=== PATIENT | male | born 1985 | race Caucasian/White ===

== ENCOUNTER 2021-02-14 15:48 | Inpatient (IN) | payer BC, SELFPAY ==
[2021-02-14] VITALS (16 sets, daily range): BP systolic 159–231; BP diastolic 87–144; PULSE 86–106; RESP 16–23; TEMP 36.6–36.8; O2SAT 95–100; BMI 32.0
--- NOTE | ~2021-02-14 | XR_ITS ---
EXAMINATION: XR chest 2V EXAM DATE: 02/14/2021 16:25 INDICATION: Midsternal chest pain, hypertension. TECHNIQUE: Frontal and lateral projections of the chest obtained and reviewed. Comparison is made to prior examination from 02/10/2018. FINDINGS: The lungs are clear. There are no pleural effusions. The cardiomediastinal silhouette is within normal limits. There is no pneumothorax suspected. The bones and soft tissues are unremarkab le. There is no significant interval change. IMPRESSION: No acute cardiopulmonary findings. Reviewed, dictated and finalized at location B.
--- NOTE | ~2021-02-14 | XR_ITS ---
EXAMINATION: XR chest 1V portable 02/15/2021 22:25 INDICATION: Shortness of breath, cough and fever PROCEDURE: AP portable chest COMPARISON: 02/14/2021 FINDINGS: The lungs are clear. The cardiomediastinal silhouette is within normal limits. There are no pleural effusions. There is no pneumothorax suspected. IMPRESSION: 1: NO ACUTE CARDIOPULMONARY DISEASE. Reviewed, dictated and finalized at location A.
--- NOTE | 2021-02-14 16:13 | ECG_ITS ---
Measurements Intervals [place] Rate: 103 P: -7 DC: 126 QRS: -15 QRSD: 106 T: 34 QT: 334 QTc: 437 Interpretive Statements SINUS TACHYCARDIA EARLY PRECORDIAL R/S TRANSITION LEFT VENTRICULAR HYPERTROPHY AND ST-T CHANGE BASELINE ARTIFACT- I, II, III, AVR, AVF, V2-V6 BORDERLINE ECG Electronically Signed On 02-15-2021 8:14:42 CDT by Americo Sandoval D.O.
[2021-02-14] MEDS: LABETALOL HCL INJ 100 MG/20 ML VIAL 20 MG IV PUSH (16:52)
[2021-02-14 16:54] LABS: Basophils Percent Auto 0.2 % (0.2-1.2); Eosinophils Absolute Auto 0.1 K/mm3 (0-0.3); Eosinophils Percent Auto 0.6 % (0-4.4); Hematocrit 47.6 % (42.0-52.0); Hemoglobin 16.6 g/dL (14.0-18.0); Immature Granulocyte Absolute 0.07 K/mm3 (0.00-0.031); Immature Granulocyte Percent A 0.5 % (0-0.5); Lymphocytes Percent Auto 24.5 % (18.3-44.2); Mean Corpuscular HGB Conc 34.9 g/dl (32-36); Mean Corpuscular Hemoglobin 27.8 pg (26-34); Mean Corpuscular Volume 79.7 fl (80-100); Mean Platelet Volume 10.9 fl (7.4-10.4); Monocytes Absolute Auto 0.8 K/mm3 (0.1-0.6); Monocytes Percent Auto 6.1 % (2.6-8.5); Neutrophils Absolute Auto 8.9 K/mm3 (1.3-6.7); Neutrophils Percent Auto 68.1 % (45.5-73.1); Platelet Count Result 238 k/mm3 (150-375); Red Blood Count 5.97 M/mm3 (4.6-6.20); Red Cell Distribution Width 12.8 % (11.5-14.5); White Blood Count 13.1 K/mm3 (4.5-10.0)
--- NOTE | 2021-02-14 16:56 | PC.NURSE ---
Per HERVE Archer via verbal order read-back, give 20mg Labetalol IVP Q10min until blood pressure is 160 systolic.
[2021-02-14 17:04] LABS: Prothrombin Time 13.2 Seconds (11.1-14.7)
[2021-02-14 17:05] LABS: Partial Thromboplastin Time 26.9 SECONDS (22.3-36.8)
--- NOTE | 2021-02-14 17:11 | PC.NURSE ---
Patient given second dose of 20mg Labetalol IVP.
[2021-02-14 17:13] LABS: Anion Gap 11 mmol/L (8-16); Blood Urea Nitrogen 19 mg/dL (9-20); Calcium 9.6 mg/dL (8.4-10.2); Carbon Dioxide 26 mmol/L (22-30); Chloride 94 mmol/L (98-107); Estimated CRCL calculation 105 ml/min; Estimated Glomerular Filt Rate > 60; Glucose 571 mg/dL (75-110); Potassium 3.6 mmol/L (3.4-5.0); Sodium 131 mmol/L (137-145)
[2021-02-14] MEDS: SODIUM CHLORIDE 0.9% IV 1,000 ML 999 ML IV CONT (17:27)
--- NOTE | 2021-02-14 17:33 | ED.CHESTPAIN ---
HPI - Chest Pain General Chief Complaint: Chest Pain Stated Complaint: chest pain Time Seen by Provider: 02/14/21 16:40 Source: patient Mode of arrival: ambulatory Limitations: no limitations History of Present Illness HPI narrative: Patient is 36 years old white male presents with intermittent chest pain started yesterday, left chest radiating to left shoulder, worse on exertion, may be better at rest, also difficulty breathing, tightness, 6 out of 10. History of hypertension used to be on hydrochlorothiazide and losartan, patient does not take his medication for months. Probably 6 months. Patient does not smoke or drink or use drugs, strong family history of coronary artery disease and diabetes. Patient denies any fever, chills, nausea, vomiting, headache, abdominal pain. Patient is fully vaccinated for COVID-19. Related Data Allergies Allergy/AdvReac Type Severity Reaction Status Date / Time No Known Allergies Allergy Unverified 02/10/18 15:34 Review of Systems Review of Systems: Narrative: CONSTITUTIONAL: Denies fever, chills, or sweats. EYES: Denies visual changes, redness, or discharge. ENT: Denies rhinorrhea, congestion, sore throat, or otalgia. CARDIOVASCULAR: Denies chest pain, palpitations, or edema. RESPIRATORY: Denies cough or dyspnea. GASTROINTESTINAL: Denies abdominal pain, nausea, vomiting, or diarrhea. GENITOURINARY: Denies dysuria or hematuria. SKIN: Denies rash or itching. MUSCULOSKELETAL: Denies back pain, joint pain, or myalgia. NEUROLOGIC: Denies headache, numbness, or weakness. PSYCHIATRIC: Denies anxiety or depression. Exam Narrative: Exam Narrative: General appearance: Well-developed, well-nourished Skin: Normal color Head: Normocephalic, nontraumatic Eyes: Clear conjunctiva ENT: Oropharynx normal, ears normal, nose normal Neck: Supple, nontender Chest and respiratory: Airway patent, no respiratory distress, no accessory muscle use Heart: Regular rate/rhythm Abdomen: Soft, nontender, no organomegaly, quiet bowel sounds Vascular: Normal peripheral pulses, normal capillary refill. Musculoskeletal: Normal range of motion, nontender back Neurologic: Alert and oriented ?3, AUTO DAMAGE ADJUSTER is normal as tested, no gross motor deficit Course Course Emergency Course: Improving Consultations Consultation #1: Dr. Jolley Date: 02/14/21 Time: 17:47 Consultation #2: Dr. Lopez Date: 02/14/21 Time: 17:48 Vital Signs Vital signs: Vital Signs Temperature 36.6 C 02/14/21 16:14 Pulse Rate 101 H 02/14/21 16:14 Respiratory Rate 16 02/14/21 16:14 Blood Pressure 217/134 H 02/14/21 16:14 Pulse Oximetry 100 02/14/21 16:14 Temperature 36.6 C 02/14/21 16:14 Pulse Rate 97 02/14/21 16:45 Respiratory Rate 16 02/14/21 16:27 Blood Pressure 231/144 H 02/14/21 16:27 Pulse Oximetry 99 02/14/21 16:27 MDM - Chest Pain MDM Narrative Medical decision making narrative: Uncontrolled hypertension, noncompliance with medication. Labs, EKG, UA ordered. Further plan to follow Differential Diagnosis Differential diagnosis: Likely stable angina, atypical chest pain, chest pain and other (Uncontrolled hypertension) Lab Data Result diagrams: 02/14/21 16:41 02/14/21 16:41 Labs: Lab Results 02/14/21 02/14/21 02/14/21 Range/Units 16:41 16:41 16:41 WBC 13.1 H (4.5-10.0) K/mm3 RBC 5.97 (4.6-6.20) M/mm3 Hgb 16.6 (14.0-18.0) g/dL Hct 47.6 (42.0-52.0) % MCV 79.7 L (80-100) fl MCH 27.8 (26-34) pg MCHC 34.9 (32-36) g/dl RDW 12.8 (11.5-14.5) % Plt Count 238 (150-375) k/mm3 MPV 10.9 H (7.4-10.4) fl Immature Gran % (Auto) 0.5 (0-0.5) % Neut % (
[2021-02-14 17:42] LABS: Alveolar/Arterial O2 Gradient 33.6 mmHg; Base Excess ABG 1.3 mEq/l (+/-2.0); Fractional Inspired Oxygen 21 %; HCO3 ABG 24.8 mEq/l (22.0-26.0); Oxygen Content ABG 22.1 %vol (16.0-22.0); Oxygen Saturation ABG 95.4 % (95.0-100.0); Oxyhemoglobin 94.3 % THb (90.0-100.0); PCO2 ABG 36.1 mmHg (35.0-45.0); PO2 ABG 72.9 mmHg (80.0-100.0); PO2 FiO2 Ratio Arterial Blood 3.47 %; Total Hemoglobin 16.7 g/dL (12.0-18.0); pH ABG 7.455 (7.350-7.450)
[2021-02-14 17:43] LABS: Device ROOM AIR; Modified Allen's Test Pass; Site Drawn LEFT RADIAL
[2021-02-14] MEDS: METOPROLOL TARTRATE INJ 5 MG/5 ML VIAL IV PUSH ×3 (17:52→18:20)
[2021-02-14] MEDS: INSULIN HUMAN REGULAR (*BKC) 100 UNITS/ML 11 UNITS IV PUSH (17:54)
[2021-02-14] MEDS: NITROGLYCERIN OINTMENT 1 INCH DOSE TRANSDERM ×2 (17:59→18:37)
--- NOTE | 2021-02-14 17:59 | PC.NURSE ---
Per HERVE Archer, give 5mg Metoprolol 3 times every 5 minutes.
[2021-02-14 18:11] LABS: Magnesium 1.7 mg/dL (1.6-2.3); Phosphorus 3.5 mg/dL (2.5-4.5)
[2021-02-14 18:14] LABS: Beta-Hydroxybutyrate/Acetoacetate 0.08 mmol/L (0.02-0.27)
[2021-02-14] MEDS: ASPIRIN 81 MG CHEWABLE TABLET 324 MG PO (18:23)
[2021-02-14 18:30] LABS: Glucose Point of Care 425 mg/dl (65-105)
[2021-02-14] MEDS: INSULIN HUMAN REGULAR (*BKC) 100 UNITS in SODIUM CHLORIDE 0.9% IV 99 ML 7.3 UNITS IV CONT (18:30)
[2021-02-14 18:32] LABS: Add Urine Microscopic? YES; Appearance Urine Clear (Clear); Bilirubin Urine Negative (Negative); Blood Urine Negative (Negative); Color Urine Straw (Yellow); Glucose Urine UA 3+ mg/dL (Negative); Ketones Urine Negative (Negative); Leukocyte Esterase Ur Negative LEU/UL (Negative); Mucus Urine Rare /lpf; Nitrate Urine Negative (Negative); Protein Urine 2+ mg/dL (Negative); Urobilinogen Urine Negative mg/dL (<2.0); WBC Urine 0-3 /hpf
--- NOTE | 2021-02-14 18:43 | ECG_ITS ---
Measurements Intervals [place] Rate: 94 P: 28 MA: 134 QRS: -11 QRSD: 105 T: 202 QT: 345 QTc: 431 Interpretive Statements SINUS RHYTHM EARLY PRECORDIAL R/S TRANSITION LEFT VENTRICULAR HYPERTROPHY AND ST-T CHANGE BORDERLINE T WAVE ABNORMALITY- DIFFUSE LEADS BASELINE ARTIFACT- I, II, AVR, AVL, AVF, V2-V6 BORDERLINE ECG Electronically Signed On 02-16-2021 9:46:56 CDT by Americo Sandoval D.O.
[2021-02-14 18:47] LABS: Specific Grav Ur 1.031 (1.001-1.035)
[2021-02-14 20:05] LABS: Glucose Point of Care 297 mg/dl (65-105)
[2021-02-14] MEDS: METOPROLOL TARTRATE 25 MG TABLET PO (20:38)
[2021-02-14 21:08] LABS: Glucose Point of Care 278 mg/dl (65-105)
--- NOTE | 2021-02-14 21:26 | PM.IMHP ---
H&P: HPI History of Present Illness Date/Time: 02/14/21 21:26Carmel is a 36 Year old male patient who has a past medical history of having hypertension. The patient states that he was having some chest pain about 3 years ago and he was diagnosed with hypertension. The patient took the medication up until a few months ago when he ran out during COVID. He could not afford to go to the doctor to get his medications renewed. So he has been without hypertensive medications for of few months. The patient stated he did have some hydrochlorothiazide and would occasionally take it when he felt like he needed to take it. The patient stated he recently received insurance and was going to follow-up with her primary care doctor to get back on his losartan and hydrochlorothiazide. He has had no prior history of diabetes. Today the patient came in because he was complaining some chest pain that started yesterday. It radiated down his left shoulder and his left chest. It was better with rest. He was also having difficulty breathing his pain was 6/10 any rated his pain as a tightness. The patient is fully vaccinated for COVID-19. Patient's trop was found to be 1.210. His blood sugar was found to be 571. The patient was placed on insulin drip and placed in the ICU. His blood sugar did come down to 271. The patient is complaining of feeling hungry. He has no anion gap and Is without complaints of nausea vomiting. The patient was given aspirin in the emergency room IV Lopressor nitro insulin IV push as well as IV drip. Cardiology had been notified of patient's complaint of chest pain and elevated troponin. The trim machine operator as well as a certified nursing assistant has been notified and the patient was admitted to observation in to ICU on the date of service of 02/14/2021. Chief Complaint: Chest pain Review of Systems Review of Systems: All systems reviewed & are unremarkable except as noted in HPI and below Constitutional: Constitutional: Reports as per HPI and Reports no additional constitutional complaints Eyes: Eyes: Reports as per HPI and Reports no additional eye complaints ENT: Reports system reviewed and no additional complaints, except as documented and Reports Normal hearing present Cardiovascular: Cardiovascular: Reports no additional cardiovascular complaints Respiratory: Respiratory: Reports no additional respiratory complaints and Reports no additional respiratory complaints Gastrointestinal: Gastrointestinal: Reports as per HPI and Reports no additional gastrointestinal complaints Musculoskeletal: Musculoskeletal: Reports no additional musculoskeletal complaints Integumentary/Breasts: Skin/Breast: Reports system reviewed and no additional complaints, except as docu and Reports as per HPI Neurologic: Reports system reviewed and no additional complaints, except as documented, Reports as per HPI and Reports Normal hearing present Psychiatric: Psychiatric: Reports no additional psychiatric complaints and Reports as per HPI Endocrine: Endocrine: Reports no additional endocrine complaints Hematologic/Lymphatic: Hematologic/Lymphatic: Reports no additional hematologic/lymphatic complaints Allergic/Immunologic: Allergic/Immunologic: Reports no additional allergic/immunologic complaints [facility] Past Medical History Medical History (Updated 02/14/21 @ 21:32 by Haven Meehan NP) DM2 (diabetes mellitus, type 2) Hypertension Torn ACL Surgical History Surgical History (Updated 02/14/21 @ 21:32 by Haven Meehan NP) No pertinent past surgical history Family History Family History Mother Diabetes mellitus Hypertension Cerebrovascular accident End stage renal disease on dialysis Father Hypertension Arrhythmia Social History Social History (Updated 02/14/21 @ 21:34 by Haven Meehan NP) Social History: the patient states that he works for a [employer] in [place].
[2021-02-14] MEDS: INSULIN GLARGINE (*BKC) 100 UNITS/ML 20 UNITS SUB-Q (21:39)
[2021-02-14 22:12] LABS: Glucose Point of Care 238 mg/dl (65-105)
[2021-02-14] MEDS: ENOXAPARIN 120 MG/0.8 ML SYRINGE 105 MG SUB-Q (22:13)
[2021-02-14] MEDS: ACETAMINOPHEN 325 MG TABLET 650 MG PO (22:28)
[2021-02-15] VITALS (30 sets, daily range): BP systolic 150–188; BP diastolic 77–117; PULSE 78–113; RESP 12–27; TEMP 36.7–37.8; O2SAT 88–99
[2021-02-15] MEDS: NITROGLYCERIN OINTMENT 1 INCH DOSE TRANSDERM ×3 (00:18→12:59)
[2021-02-15 02:08] LABS: Glucose Point of Care 279 mg/dl (65-105)
--- NOTE | 2021-02-15 02:08 | PC.NURSE ---
Called to room by patient for c/o nausea, denies chest pain. POC glucose 279. Patient states nausea has passed and does not want anything right now. Instructed to call if any problems/complaints.
[2021-02-15 04:50] LABS: Basophils Percent Auto 0.3 % (0.2-1.2); Eosinophils Absolute Auto 0.1 K/mm3 (0-0.3); Eosinophils Percent Auto 0.9 % (0-4.4); Hemoglobin 14.2 g/dL (14.0-18.0); Immature Granulocyte Absolute 0.05 K/mm3 (0.00-0.031); Immature Granulocyte Percent A 0.4 % (0-0.5); Lymphocytes Absolute Auto 3.16 K/mm3 (0.9-3.2); Lymphocytes Percent Auto 26.5 % (18.3-44.2); Mean Corpuscular HGB Conc 34.6 g/dl (32-36); Mean Corpuscular Hemoglobin 27.7 pg (26-34); Mean Corpuscular Volume 80.1 fl (80-100); Mean Platelet Volume 11.1 fl (7.4-10.4); Monocytes Absolute Auto 0.8 K/mm3 (0.1-0.6); Monocytes Percent Auto 6.9 % (2.6-8.5); Neutrophils Absolute Auto 7.7 K/mm3 (1.3-6.7); Platelet Count Result 197 k/mm3 (150-375); Red Blood Count 5.12 M/mm3 (4.6-6.20); Red Cell Distribution Width 12.5 % (11.5-14.5); White Blood Count 11.9 K/mm3 (4.5-10.0)
[2021-02-15 05:10] LABS: Hemoglobin A1C 13.1 % (<5.7)
[2021-02-15 05:47] LABS: Alanine Aminotransferase 48 U/L (4-50); Albumin Level 3.2 g/dL (3.5-5.1); Alkaline Phosphatase 85 U/L (38-126); Anion Gap 6 mmol/L (8-16); Aspartate Amino Transferase 55 U/L (17-59); Bilirubin,Total 0.6 mg/dL (0.2-1.3); Blood Urea Nitrogen 13 mg/dL (9-20); Calcium 8.4 mg/dL (8.4-10.2); Carbon Dioxide 27 mmol/L (22-30); Chloride 103 mmol/L (98-107); Estimated CRCL calculation 113 ml/min; Estimated Glomerular Filt Rate > 60; Glucose 284 mg/dL (75-110); Magnesium 1.7 mg/dL (1.6-2.3); Potassium 3.4 mmol/L (3.4-5.0); Sodium 136 mmol/L (137-145)
--- NOTE | 2021-02-15 06:00 | ECG_ITS ---
Measurements Intervals [place] Rate: 91 P: 37 MD: 132 QRS: -11 QRSD: 98 T: 207 QT: 341 QTc: 420 Interpretive Statements SINUS RHYTHM LEFT VENTRICULAR HYPERTROPHY AND ST-T CHANGE ST-T WAVE ABNORMALITY IN ANTEROLATERAL LEADS- CONSIDER ISCHEMIA BASELINE ARTIFACT- V2 ABNORMAL ECG Electronically Signed On 02-15-2021 8:24:42 CDT by Americo Sandoval D.O.
[2021-02-15] MEDS: ACETAMINOPHEN 325 MG TABLET 650 MG PO ×3 (06:12→21:39)
[2021-02-15] MEDS: INSULIN ASPART (*BKC) 100 UNITS/ML SUB-Q ×3 (06:27→17:49)
[2021-02-15 06:36] LABS: Glucose Point of Care 288 mg/dl (65-105)
[2021-02-15] MEDS: ONDANSETRON INJ 4 MG/2 ML VIAL IV PUSH (07:20)
[2021-02-15] MEDS: SODIUM CHLORIDE 0.9% IV 1,000 ML 999 ML IV CONT (07:29)
--- NOTE | 2021-02-15 07:55 | WPDCNINT ---
Assessment and Plan Assessment and plan (1) Non-STEMI (non-ST elevated myocardial infarction): Code(s): I21.4 - Non-ST elevation (NSTEMI) myocardial infarction Status: Acute Assessment and Plan: patient presented with chest tightness /pain, 6/10 in intensity, radiating to the left shoulder and left upper arm. associated with shortness of breath and nausea - EKG does show ST-T changes - troponins peaked at 5.250 - continue nitroglycerin paste, metoprolol therapeutic Lovenox - cardiology has been consulted (2) Hypertension, uncontrolled: Code(s): I10 - Essential (primary) hypertension Status: Acute Assessment and Plan: patient with uncontrolled hypertension /hypertensive urgency likely related to noncompliance with medication. Patient states that he has been out of this medication for a few months - currently on metoprolol and p.r.n. labetalol. Will maintain systolic blood pressures between 140 and 160 mmHg - cardiology to evaluate, (3) Acute hyperglycemia: Code(s): R73.9 - Hyperglycemia, unspecified Status: Acute Assessment and Plan: patient presented with acute hyperglycemia with blo od sugars> 500. Patient states he does not have a history of diabetes - was started on insulin infusion after being given IV fluids in the ER, insulin infusion was transition to long-acting insulin and sliding scale insulin overnight. - will give additional IV fluids - hemoglobin A1c is 13.1 Additional Plan discussed with patient updated with his condition and plan of care. He is aware that his blood pressures have improved, no also he has diabetes. I did discuss with him regarding his elevated troponins are likely need for angiogram. Cardiology will be evaluating and will further discuss with him code status: Full code Critical care time spent: 44 minutes This dictation may have been done utilizing a voice recognition system. Attempts have been made to correct errors. However, there may be uncorrected grammatical, spelling, and recognition errors present. Due to a high probability of clinically significant, life threatening deterioration, the patient required my highest level of preparedness to intervene emergently and I personally spent this critical care time directly and personally managing the patient. This critical care time included obtaining a history; examining the patient; pulse oximetry; ordering and review of studies; arranging urgent treatment with development of a management plan; evaluation of patient's response to treatment; frequent reassessment; and discussions with other providers. It was exclusive of separately billable procedures and treating other patients and teaching time. Please see Assessment and Plan section and the rest of the note for further information on patient assessment and treatment Scientific Research Manager Consult Note Consult date: 02/15/21 Time Seen: 06:54 Reason for consult: NSTEMI, hyperglycemia, hypertensive urgency HPI: Romario Knox is a 36 year old male with past medical history of hypertension presented the ER on 02/14/2021 with complains of left-sided chest pain radiating to left shoulder and left upper arm. Patient also complains of shortness of breath, nausea but no vomiting. In the ER patient's systolic blood pressures were in the 230s, blood sugars were 571, his initial troponin was 1.21. Patient stated he had chest tightness, 6/10 intensity, shortness of breath and nausea. patient was given IV fluids, multiple doses of labetalol and metoprolol for the blood pressures, Nitroglycerin paste, he was started on insulin infusion and transferred to the ICU for further management. off note patient has not been taking his blood pressure medication since a few months. patient seen and examined the ICU, denies any chest pain at this time. Denies nausea, vomiting, abdominal pain, shortness of breath. Troponins have increased to 5.25 this morning. Patient re
[2021-02-15 08:19] LABS: Glucose Point of Care 298 mg/dl (65-105)
--- NOTE | 2021-02-15 09:19 | PM.CNCAR ---
Assessment and Plan Assessment and plan (1) Non-STEMI (non-ST elevated myocardial infarction): Code(s): I21.4 - Non-ST elevation (NSTEMI) myocardial infarction Status: Acute Assessment and Plan: Young man who suffered a NSTEMI yesterday. REc. cardiac cath w/ poss PCI. Pt says he is now insured and also that he will be compliant w/ medications. He seems to realize that he has a lot of medical issues and my impression is that he will be compliant w/ FU. Reviewed cardiac cath, risks, PCI, need for DAPT. Pt desires to proceed. Check lipids, cont ASA etc. (2) Hypertension, uncontrolled: Code(s): I10 - Essential (primary) hypertension Status: Acute Assessment and Plan: Improved.Cont to titrate meds as needed. (3) DM2 (diabetes mellitus, type 2): Code(s): E11.9 - Type 2 diabetes mellitus without complications Status: Chronic Assessment and Plan: New onset diabetes. Evaluation treatment per hospitalist. (4) Non-compliance: Code(s): Z91.19 - Patient's noncompliance with other medical treatment and regimen Status: Acute Assessment and Plan: Noncompliance secondary to lack of insurance. Patient states he is now insured and also he will comply with medical therapy. History of Present Illness History of Present Illness Consult date/time: 02/15/21 09:19 Reason For Visit: NSTEMI/uncontrolled hypertension/hyperglycemia/non Narrative: Mr. Romario Knox is a 36-year-old male whom we were asked to see at the request of the hospitalist for our advice and opinion regarding his elevated troponins, in consultation. The patient started having intermittent chest pain and MONK on 02/12/2021 radiating to the left shoulder, worse with exertion. Yesterday he had recurrent discomfort that was worse and didn't resolve, and he came to the ER. On admission his blood pressure is 231/144. His blood sugar was 571. His troponins were 1.2, 3.9 and 5.3. He was given ASA and full-dose Lovenox. The patient had history of hypertension but stopped his hydrochlorothiazide and losartan several months ago. Apparently he was uninsured and could not afford to see a physician or medications. Now he has insurance. No prior history of diabetes. Nonsmoker. Lipid status unknown. Positive family history for premature CAD. Review of Systems Constitutional: Constitutional: Reports lethargy Eyes: Eyes: Reports no additional eye complaints ENT: Denies epistaxis Cardiovascular: Cardiovascular: Reports chest pain, Denies pedal edema, Denies leg edema and Denies lightheadedness Respiratory: Respiratory: Denies cough and Reports dyspnea on exertion Gastrointestinal: Gastrointestinal: Denies abdominal pain, Denies hematochezia and Denies hematemesis Genitourinary: Genitourinary: Denies hematuria Musculoskeletal: Musculoskeletal: Reports no additional musculoskeletal complaints Integumentary/Breasts: Skin/Breast: Denies rash Neurologic: Denies headache(s) Psychiatric: Psychiatric: Denies depression [facility] Past Medical History Medical History DM2 (diabetes mellitus, type 2) Hypertension Torn ACL Surgical History Surgical History No pertinent past surgical history Family History Family History Mother Diabetes mellitus Hypertension Cerebrovascular accident End stage renal disease on dialysis Heart disease AL in her early 50s Father Hypertension Arrhythmia Social History Social History (Updated 02/14/21 @ 21:34 by Haven Meehan NP) Social History: the patient states that he works for a [employer] in [place]. He is single and does not have any childr
[2021-02-15] MEDS: METOPROLOL TARTRATE 25 MG TABLET PO ×2 (09:33→20:16)
[2021-02-15] MEDS: ASPIRIN 81 MG CHEWABLE TABLET PO (09:33)
--- NOTE | 2021-02-15 09:53 | PC.NURSE ---
Dr. Glass at bedside.
[2021-02-15] MEDS: POTASSIUM CHLORIDE 20 MEQ TABLET 40 MEQ PO (10:02)
--- NOTE | 2021-02-15 11:21 | PC.NURSE ---
Patient off floor to slab lifting supervisor.
--- NOTE | 2021-02-15 11:27 | WPDMODSED ---
Moderate Sedation Note-Pt Data Patient Data Diagnosis: Acute coronary syndrome Present Complaint: chest pain Procedure to be performed/Plan: left heart catheterization Allergies Allergy/AdvReac Type Severity Reaction Status Date / Time No Known Allergies Allergy Unverified 02/10/18 15:34 Home Medications Medication Instructions Recorded Confirmed Type No Home Medications 02/15/21 02/15/21 History Current Medications: Active Medications Acetaminophen (Acetaminophen 325 Mg Tablet) 650 mg PO Q4H PRN PRN Reason: Headache Last Admin: 02/15/21 06:12 Dose: 650 mg Documented by: Aspirin (Aspirin 81 Mg Chewable Tablet) 81 mg PO DAILY@0800 HARI Last Admin: 02/15/21 09:33 Dose: 81 mg Documented by: Dextrose (Dextrose 50% 25 Gm/50 Ml Syringe) 12.5 gm IV PUSH PRN PRN; Protocol PRN Reason: Hypoglycemia Enoxaparin Sodium (Enoxaparin 120 Mg/0.8 Ml Syringe) 105 mg SUB-Q Q12HR HARI Last Admin: 02/15/21 09:30 Dose: Not Given Documented by: Glucagon (Glucagon For Inj 1 Mg Vial) 1 mg IM PRN PRN; Protocol PRN Reason: Hypoglycemia Glucose (Glucose Oral Gel 15 Gm Of Glucse In 37.5 Gm Tube) 15 gm PO PRN PRN; Protocol PRN Reason: Hypoglycemia Dextrose (Dextrose 5% 1,000 Ml) 1,000 mls @ 100 mls/hr IVPB PRN PRN; Protocol PRN Reason: Hypoglycemia Insulin Aspart (Insulin Aspart (*Bkc) 100 Units/Ml) 4 - 8 units SUB-Q Q6H HARI; Protocol Last Admin: 02/15/21 09:30 Dose: Not Given Documented by: Insulin Glargine (Insulin Glargine (*Bkc) 100 Units/Ml) 20 units SUB-Q HS HARI Last Admin: 02/14/21 21:39 Dose: 20 units Documented by: Labetalol HCl (Labetalol Hcl Inj 100 Mg/20 Ml Vial) 20 mg IV PUSH ONCE PRN PRN Reason: BP >160/110 Last Admin: 02/14/21 16:52 Dose: 20 mg Documented by: Metoprolol Tartrate (Metoprolol Tartrate 25 Mg Tablet) 25 mg PO Q12HR HARI Last Admin: 02/15/21 09:33 Dose: 25 mg Documented by: Nitroglycerin (Nitroglycerin Ointment 1 Inch Dose) 1 inch TRANSDERM Q6HR HARI Last Admin: 02/15/21 06:12 Dose: 1 inch Documented by: Nitroglycerin (Nitroglycerin Sl 0.4 Mg Tablet) 0.4 mg SUBLINGUAL Q5MIN PRN PRN Reason: Chest Pain Ondansetron HCl (Ondansetron Inj 4 Mg/2 Ml Vial) 4 mg IV PUSH Q6H PRN PRN Reason: Nausea And Vomiting Last Admin: 02/15/21 07:20 Dose: 4 mg Documented by: Sedation/Anesthesia: No previous sedation/anesthesia problems (including family history). [facility] Past Medical History Medical History (Updated 02/14/21 @ 21:32 by Haven Meehan NP) DM2 (diabetes mellitus, type 2) Hypertension Torn ACL Surgical History Surgical History (Updated 02/14/21 @ 21:32 by Haven Meehan NP) No pertinent past surgical history Family History Family History Mother Diabetes mellitus Hypertension Cerebrovascular accident End stage renal disease on dialysis Father Hypertension Arrhythmia Social History Social History (Updated 02/14/21 @ 21:34 by Haven Meehan NP) Social History: the patient states that he works for a [employer] in [place]. He is single and does not have any children. The patient denies any alcohol use. He does admit to using marijuana but no other illicit drugs. Lifelong nonsmoker. Smoking status: Never smoker Alcohol intake: never Substance use: current Substance use type: former substance user Other substance usage details: once every 2-3 months Spiritual care concerns: No Mod Sed Physical Exam Physical Exam Pre Procedural Exam: Normal: Airway, Lungs, Heart Size, Heart Rate, Heart Rhythm, Neuro Exam and Extremities and Variation: Appearance ( overweight white male no apparent distress) Hours since solid foods: 12 Hours since liquid intake: 12 Mallampati Classification: class II Internal Medicine - PN: Obj Da Vital Signs Vital Signs: Vital Signs - 24 hr 02/14/21 16:14 02/14/21 16:27 02/14/21 16:45 Temperature 36.6 C Pulse Rate 101 H 106 H
--- NOTE | 2021-02-15 12:06 | P.PCNCC_ITS ---
Cardiac Cath Procedure Note Date of procedure:: 02/15/21 Performing physician:: Romario Jay MD Indication:: acute coronary syndrome Brief clinical history:: this is a 36-year-old gentleman previously known to have hypertension was admitted to the hospital with chest pain and obvious severe hyperglycemia and the new diagnosis of diabetes. Troponin levels have risen significantly compatible with non ST elevation VT. ECG does show some anterior ST elevation and some Q-waves. Procedure Procedure performed:: Coronary angiography left ventriculography Angio-Seal to right femoral artery Sedation/Medication given:: fentanyl 50 mg Versed 2 mg case start time 11:38 a.m. case end time 11:58 a.m. sedation provided by Leigha Mosqueda RN, trained observer Access site:: right femoral artery Estimated blood loss:: 10-15 cc Procedure note:: patient was brought to the cardiac catheterization lab postabsorptive state the right femoral triangle was prepared in the normal fashion. Anesthesia was provided with 1% lidocaine infiltrated locally. Using the modified Seldinger technique the femoral artery was punctured and a 5 [place] vascular sheath was placed. After this left heart catheterization was carried out. I used a 5 [place] angled pigtail catheter to left-sided hemodynamics and to injected LV g in the OLIVER projection. After this a 5 [place] FL4 catheter was used to engage and inject the left coronary artery in multiple projections. A 5 [place] JR4 catheter was used to engage and inject the right coronary artery. The cineangiograms were then reviewed and the case was terminated. An angiogram was done the femoral artery through the sheath after which an Angio-Seal device was deployed with a good hemostatic result. Procedure was well tolerated and uncomplicated. He left the medical lab director with no evidence of groin hematoma. Findings:: Hemodynamics: Central aortic pressure is 170 over 114, left ventricle 170/10 end-diastolic pressure 22. There is no gradient on pullback across the aortic valve. Left ventricle: The LV is normal in size the inferior wall is markedly hypodynamic the remainder of the LV contracts very well global ejection fraction of visually estimate to be in the vicinity of 50-55%. The left main coronary artery is widely patent the left anterior descending is a large caliber vessel extending down to the apex and just around the apex. The LAD itself is smooth and angiographically normal in appearance. The diagonal branches also unremarkable. There is a high-grade stenosis of 95% at the ostium of the major septal perforating complex. The circumflex is a moderate to large caliber artery giving rise to the marginal branch is the circumflex is smooth and angiographically normal in appearance the right coronary artery is large in caliber dominant to the posterior circulation it is angiographically smooth and free of disease. Conclusion:: 1. Right coronary dominant circulation with coronary artery disease appears to be limited to high-grade 95% stenosis at the ostium of a large septal branch of the left anterior descending. No other coronary lesions are identified 2. inferior wall hypokinesia which is difficult to explain based on these angiograms overall slightly reduced ejection fraction 3. significant hypertension and elevated LVEDP 4. Angio-Seal to right femoral artery Romario Jay MD FACC
--- NOTE | 2021-02-15 12:31 | PC.NURSE ---
1225-Pt. back to room from labor gang supervisor. Bedside report received from Kandice WALLER. Kandice gave results of the procedure to the family who are also at the bedside. Pt. instructed of plan of care following the cardiac cath. Pt. has no c/o pain or discomfort at this time.
[2021-02-15] MEDS: SODIUM CHLORIDE 0.9% IV 1,000 ML 125 ML IV CONT (12:40)
--- NOTE | 2021-02-15 12:40 | PC.NURSE ---
Cardiop[facility] Rehab Services flyer was given to patient in admission folder.
[2021-02-15 13:04] LABS: Glucose Point of Care 266 mg/dl (65-105)
--- NOTE | 2021-02-15 13:37 | PM.IMPN ---
Progress Note: A&P Assessment and Plan (1) Non-STEMI (non-ST elevated myocardial infarction): Code(s): I21.4 - Non-ST elevation (NSTEMI) myocardial infarction Status: Acute Assessment and Plan: Continue to trend his troponins. The patient did have chest pain with this that started yesterday. I did order an echo for tomorrow. I started him on some subcu Lovenox. I started him on metoprolol as well. Cardiology has been consulted. Will continue to trend his troponins. He has p.r.n. nitro as well. 02/15/21 13:37 patient is a 36-year-old male with history of hypertension and diabetes uncontrolled with hemoglobin A1c of 13 patient presented emergency department with complaint chest pain described as a tightening, patient stated he has not taken his blood pressure and diabetic medicine for several months, upon arrival patient blood sugar was in 571 and in DKA insulin drip was started, patient blood sugars are trending down his off the drip and on long-acting insulin as well as short-acting insulin, patient tropes are elevated to 5.27 patient was seen by Cardiology to taken to the cardiac lab animal technician had a cardiac catheterization showed significant stenosis unable to amend with stent, patient remains clinically stable is seen by fire marshal refinery and Cardiology and appreciate. (2) DM2 (diabetes mellitus, type 2): Code(s): E11.9 - Type 2 diabetes mellitus without complications Status: Chronic Assessment and Plan: Were going to take him off the insulin drip now his blood sugars are in the 200s. Will give him some Lantus according to his weight which is 0.2 milligrams/kilogram. And give him moderate sliding scale insulin. certified adaptive physical educator would greatly be appreciated. The patient will need a monitor to go home with. Check his A1c is well. (3) Hypertension: Code(s): I10 - Essential (primary) hypertension Status: Chronic Assessment and Plan: The patient has been off of his losartan and his hydrochlorothiazide. Since his troponins are elevated I did start him on metoprolol. (4) Non-compliance: Code(s): Z91.19 - Patient's noncompliance with other medical treatment and regimen Status: Acute Assessment and Plan: The patient stated that he was not able to afford a doctor visit in the past. Subjective Date/time seen: 02/15/21 13:37 patient is a 36-year-old male with history of hypertension and diabetes uncontrolled with hemoglobin A1c of 13 patient presented emergency department with complaint chest pain described as a tightening, patient stated he has not taken his blood pressure and diabetic medicine for several months, upon arrival patient blood sugar was in 571 and in DKA insulin drip was started, patient blood sugars are trending down his off the drip and on long-acting insulin as well as short-acting insulin, patient tropes are elevated to 5.27 patient was seen by Cardiology to taken to the cardiac lab animal technician had a cardiac catheterization showed significant stenosis unable to amend with stent, patient remains clinically stable is seen by fire marshal refinery and Cardiology and appreciate. Review of Systems Review of Systems: All systems reviewed & are unremarkable except as noted in HPI and below Exam Narrative: Exam Narrative: moderately obese Patient is comfortable, NAD HEENT: eyes are clear and none icteric LUNGS:CTA HEART: RR S1S2 ABD: BS+, Soft and nontender Lower extremities: no edema SKIN: nonjaundiced Neuro: grossly intact. Objective Data Vital Signs Vital Signs: Vital Signs - 24 hr 02/14/21 16:14 02/14/21 16:27 02/14/21 16:45 Temperature 97.8 F Pulse Rate 101 H 106 H 97 Pulse Rate [Right Pedal (Dorsalis Pedis) Palpation] Respiratory Rate 16 16 Blood Pressure 217/134 H 231/144 H Pulse Oximetry 100 99 02/14/21 17:00 02/14/21 17:30 02/14/21 17:52 Temperature Pulse Rate 99 99 96 Pulse Rate [Right Pedal (Dorsalis Pedis) Palpation]
[2021-02-15] MEDS: LABETALOL HCL INJ 100 MG/20 ML VIAL 20 MG IV PUSH ×3 (15:58→22:29)
--- NOTE | 2021-02-15 17:00 | PC.NURSE ---
Dr. Moreno aware of BP. Reviewed current BP medications scheduled and PRN. States we will slowly lower his BP because he has been off his BP medications for sometime.
[2021-02-15 17:56] LABS: Glucose Point of Care 263 mg/dl (65-105)
[2021-02-15] MEDS: ENOXAPARIN 120 MG/0.8 ML SYRINGE 105 MG SUB-Q (20:16)
[2021-02-15 20:23] LABS: Glucose Point of Care 371 mg/dl (65-105)
[2021-02-15] MEDS: INSULIN GLARGINE (*BKC) 100 UNITS/ML 20 UNITS SUB-Q (20:23)
[2021-02-15] MEDS: IPRATROPIUM BR 0.02% INH SOLN 0.5 MG/2.5 ML VIAL INHALATION (22:34)
[2021-02-16] VITALS (18 sets, daily range): BP systolic 163–202; BP diastolic 90–120; PULSE 90–120; RESP 14–23; TEMP 36–37.8; O2SAT 96–100
[2021-02-16 05:50] LABS: Basophils Percent Auto 0.2 % (0.2-1.2); Eosinophils Percent Auto 0.3 % (0-4.4); Hematocrit 41.9 % (42.0-52.0); Hemoglobin 14.6 g/dL (14.0-18.0); Immature Granulocyte Absolute 0.07 K/mm3 (0.00-0.031); Immature Granulocyte Percent A 0.6 % (0-0.5); Lymphocytes Absolute Auto 2.66 K/mm3 (0.9-3.2); Lymphocytes Percent Auto 22.6 % (18.3-44.2); Mean Corpuscular HGB Conc 34.8 g/dl (32-36); Mean Corpuscular Hemoglobin 28.1 pg (26-34); Mean Corpuscular Volume 80.6 fl (80-100); Mean Platelet Volume 11.2 fl (7.4-10.4); Monocytes Absolute Auto 0.8 K/mm3 (0.1-0.6); Monocytes Percent Auto 7.1 % (2.6-8.5); Neutrophils Absolute Auto 8.2 K/mm3 (1.3-6.7); Neutrophils Percent Auto 69.2 % (45.5-73.1); Platelet Count Result 194 k/mm3 (150-375); Red Cell Distribution Width 12.7 % (11.5-14.5); White Blood Count 11.8 K/mm3 (4.5-10.0)
[2021-02-16 06:02] LABS: Alanine Aminotransferase 36 U/L (4-50); Albumin Level 3.2 g/dL (3.5-5.1); Alkaline Phosphatase 68 U/L (38-126); Anion Gap 7 mmol/L (8-16); Aspartate Amino Transferase 35 U/L (17-59); Blood Urea Nitrogen 11 mg/dL (9-20); Calcium 7.8 mg/dL (8.4-10.2); Carbon Dioxide 22 mmol/L (22-30); Chloride 107 mmol/L (98-107); Cholesterol 138 mg/dL (0-200); Estimated CRCL calculation 142 ml/min; Estimated Glomerular Filt Rate > 60; Glucose 227 mg/dL (75-110); HDL Direct 33 mg/dL; Magnesium 1.6 mg/dL (1.6-2.3); Phosphorus 2.7 mg/dL (2.5-4.5); Potassium 3.5 mmol/L (3.4-5.0); Sodium 136 mmol/L (137-145); Triglycerides 143 mg/dL (<150)
[2021-02-16 06:13] LABS: LDL Cholesterol Direct 66 mg/dL
--- NOTE | 2021-02-16 07:00 | PC.NURSE ---
This patient, Romario Knox, was transferred to [214 ] on 02/16/21 at 0700. Personal belongings sent with patient. Report given to [ Kody WALLER]. Appropriate documentation sent with patient.
[2021-02-16 07:35] LABS: Glucose Point of Care 272 mg/dl (65-105)
[2021-02-16] MEDS: ASPIRIN 81 MG CHEWABLE TABLET PO (09:12)
[2021-02-16] MEDS: METOPROLOL TARTRATE 25 MG TABLET PO ×2 (09:12→20:41)
[2021-02-16] MEDS: INSULIN ASPART (*BKC) 100 UNITS/ML SUB-Q ×3 (09:13→18:00)
[2021-02-16] MEDS: ENOXAPARIN 120 MG/0.8 ML SYRINGE 105 MG SUB-Q ×2 (09:13→20:41)
[2021-02-16 11:52] LABS: Glucose Point of Care 305 mg/dl (65-105)
--- NOTE | 2021-02-16 12:58 | PM.PNCARD ---
Progress Note: A&P Assessment and Plan (1) Non-STEMI (non-ST elevated myocardial infarction): Code(s): I21.4 - Non-ST elevation (NSTEMI) myocardial infarction <CYNDIE Walker - Last Filed: 02/16/21 14:50> Status: Acute <CYNDIE Walker - Last Filed: 02/16/21 14:50> Assessment and Plan: Young man who suffered a NSTEMI yesterday. Coronary angiogram findings: 1. Right coronary dominant circulation with coronary artery disease appears to be limited to high-grade 95% stenosis at the ostium of a large septal branch of the left anterior descending. No other coronary lesions are identified 2. inferior wall hypokinesia which is difficult to explain based on these angiograms overall slightly reduced ejection fraction 3. significant hypertension and elevated LVEDP 4. Angio-Seal to right femoral artery No longer having chest pain today. On ASA, will start statin. <CYNDIE Walker - Last Filed: 02/16/21 14:50> (2) Hypertension, uncontrolled: Code(s): I10 - Essential (primary) hypertension <CYNDIE Walker - Last Filed: 02/16/21 14:50> Status: Acute <CYNDIE Walker - Last Filed: 02/16/21 14:50> Assessment and Plan: Blood pressure remains well above goal today. We will start lisinopril and amlodipine and titrate as needed. <CYNDIE Walker - Last Filed: 02/16/21 14:50> (3) DM2 (diabetes mellitus, type 2): Code(s): E11.9 - Type 2 diabetes mellitus without complications <CYNDIE Walker - Last Filed: 02/16/21 14:50> Status: Chronic <CYNDIE Walker - Last Filed: 02/16/21 14:50> Assessment and Plan: New onset diabetes. Evaluation treatment per hospitalist. <CYNDIE Walker - Last Filed: 02/16/21 14:50> (4) Non-compliance: Code(s): Z91.19 - Patient's noncompliance with other medical treatment and regimen <CYNDIE Walker - Last Filed: 02/16/21 14:50> Status: Acute <CYNDIE Walker - Last Filed: 02/16/21 14:50> Assessment and Plan: Noncompliance secondary to lack of insurance. Patient states he is now insured and also he will comply with medical therapy. <CYNDIE Walker - Last Filed: 02/16/21 14:50> Additional Plan 02/16/2021 addendum: Patient is doing well often about in his room with no chest pain or shortness of breath. Feels a little sluggish from his low-grade temperature. Blood pressure is still high; patient states when he took valsartan 320 mg plus HCTZ his blood pressure was well controlled in the past. Heart rate is gradually increasing, now in the 120s, sinus tachycardia today. Lungs are clear, no murmur, cath site looks fine, no edema. COVID screen was negative. Will change lisinopril to valsartan since he states he had well controlled blood pressure on that in the past. Reviewed heart disease, hypertension, medical follow-up etc. Hipolito Glass MD <Rhoda Glass MD - Last Filed: 02/16/21 19:16> Subjective Date/time seen: Cardiology follow up for NSTEMI Date of service 02/16/21: Patient feels well today. He She is not having any more chest pain today. He denies shortness of breath. He says that he has been up ambulating in his room and does not have any chest pain or shortness of breath with ambulation. <CYNDIE Walker - Last Filed: 02/16/21 14:50> Review of Systems Constitutional: Constitutional: Denies headache(s) and Reports lethargy <CYNDIE Walker - Last Filed: 02/16/21 14:50> Eyes: Eyes: Reports no additional eye complaints <CYNDIE Walker - Last Filed: 02/16/21 14:50> ENT: Denies headache(s) and Denies epistaxis <CYNDIE Walker - Last Filed: 02/16/21 14:50> Cardiovascular: Cardiovascular: Report
--- NOTE | 2021-02-16 14:30 | PCCDE ---
Consult received 02/14 r/t new onset DM. Pt was admitted 02/14 with NSTEMI/uncontrolled HTN and hyperglycemia (CW=288). Met with RN today; pt is being COVID tested with results pending. Left Diabetes Management book with DM specialist contact info and One Touch Verio Reflect BG meter to give pt. Attempted to call room (due to COVID precautions) but pt did not answer. Will f/up tomorrow.
[2021-02-16] MEDS: amLODIPine BESYLATE 5 MG TABLET PO (14:47)
[2021-02-16] MEDS: lisinopriL 5 MG TABLET PO (14:47)
[2021-02-16 15:39] LABS: SARS-CoV-2 RNA PCR Negative
[2021-02-16 16:49] LABS: Glucose Point of Care 267 mg/dl (65-105)
[2021-02-16] MEDS: GLIMEPIRIDE 2 MG TABLET PO (17:58)
[2021-02-16] MEDS: ACETAMINOPHEN 325 MG TABLET 650 MG PO (17:59)
--- NOTE | 2021-02-16 17:59 | PM.IMPN ---
Progress Note: A&P Assessment and Plan (1) Non-STEMI (non-ST elevated myocardial infarction): Code(s): I21.4 - Non-ST elevation (NSTEMI) myocardial infarction Status: Acute Assessment and Plan: Continue to trend his troponins. The patient did have chest pain with this that started yesterday. I did order an echo for tomorrow. I started him on some subcu Lovenox. I started him on metoprolol as well. Cardiology has been consulted. Will continue to trend his troponins. He has p.r.n. nitro as well. 02/16/21 17:59 02/15 patient is a 36-year-old male with history of hypertension and diabetes uncontrolled with hemoglobin A1c of 13 patient presented emergency department with complaint chest pain described as a tightening, patient stated he has not taken his blood pressure and diabetic medicine for several months, upon arrival patient blood sugar was in 571 and in DKA insulin drip was started, patient blood sugars are trending down his off the drip and on long-acting insulin as well as short-acting insulin, patient tropes are elevated to 5.27 patient was seen by Cardiology to taken to the cardiac civil laboratory technician had a cardiac catheterization showed significant stenosis unable to amend with stent, patient remains clinically stable is seen by rail maintenance worker and Cardiology and appreciate. 02/16 patient had developed fever and cough there was a concern the patient may be positive for COVID-19 was tested an isolated, patient COVID-19 is negative however patient continued to have fever, will do the blood, urine culture, patient chest x-ray was negative yesterday, will start the patient on Zosyn and further recommendation to follow, patient blood pressure remaining high seen by cardiology add Norvasc 5 mg q.day, lisinopril 5 mg q.day and continue metoprolol 25 mg b.i.d will continue to monitor, patient with diabetes uncontrolled, added metformin 500 mg b.i.d.and glimepiride to mg b.i.d. will monitor with sliding scale, patient be seen by flat sheet maker and further recommendation to follow (2) DM2 (diabetes mellitus, type 2): Code(s): E11.9 - Type 2 diabetes mellitus without complications Status: Chronic Assessment and Plan: Were going to take him off the insulin drip now his blood sugars are in the 200s. Will give him some Lantus according to his weight which is 0.2 milligrams/kilogram. And give him moderate sliding scale insulin. ordering box operator would greatly be appreciated. The patient will need a monitor to go home with. Check his A1c is well. (3) Hypertension: Code(s): I10 - Essential (primary) hypertension Status: Chronic Assessment and Plan: The patient has been off of his losartan and his hydrochlorothiazide. Since his troponins are elevated I did start him on metoprolol. (4) Non-compliance: Code(s): Z91.19 - Patient's noncompliance with other medical treatment and regimen Status: Acute Assessment and Plan: The patient stated that he was not able to afford a doctor visit in the past. Subjective Date/time seen: 02/16/21 17:59 02/15 patient is a 36-year-old male with history of hypertension and diabetes uncontrolled with hemoglobin A1c of 13 patient presented emergency department with complaint chest pain described as a tightening, patient stated he has not taken his blood pressure and diabetic medicine for several months, upon arrival patient blood sugar was in 571 and in DKA insulin drip was started, patient blood sugars are trending down his off the drip and on long-acting insulin as well as short-acting insulin, patient tropes are elevated to 5.27 patient was seen by Cardiology to taken to the cardiac civil laboratory technician had a cardiac catheterization showed significant stenosis unable to amend with stent, patient remains clinically stable is seen by rail maintenance worker and Cardiology and appreciate. 02/16 patient had developed fever and cough there was a concern the patient may be positive
[2021-02-16 18:18] LABS: Glucose Point of Care 251 mg/dl (65-105)
[2021-02-16 21:23] LABS: Glucose Point of Care 317 mg/dl (65-105)
[2021-02-16] MEDS: INSULIN GLARGINE (*BKC) 100 UNITS/ML 20 UNITS SUB-Q (21:39)
[2021-02-17] VITALS (14 sets, daily range): BP systolic 150–187; BP diastolic 99–116; PULSE 84–126; RESP 14–20; TEMP 35.7–37.9; O2SAT 97–99; BMI 33.6
--- NOTE | 2021-02-17 | ECHO_ITS ---
Patient Info Name: Romario Knox Age: 36 years : 1985 Gender: Male Ht: 71 in Wt: 229 lbs BSA: 2.31 m2 HR: 98 bpm BP: 160 / 107 mmHg Technical Quality: Good Exam Date: 02/17/2021 9:15 AM Exam Location: [facility] Patient Status: Inpatient Admit Date: 02/15/2021 Staff Ordering Physician: Haven Meehan NP Neon Molder: Piero Licea RDCS, RT Attending Provider: Fredis Valles MD Referring Physician: Zoran CHRISTINE; Exam Type: CA echo doppler color flow Study Info Indications I10 - Essential (primary) hypertension Complete two-dimensional, color flow and Doppler transthoracic echocardiogram is performed. Summary 1. Complete two-dimensional, color flow and Doppler transthoracic echocardiogram is performed. 2. Left ventricular chamber dimension is mildly enlarged. 3. Left ventricular systolic function is moderately reduced, estimated at 35-40%. preserved wall motion in apical segments and the rest of the segments are hypokinetic. 4. The left ventricular diastolic function is grade II diastolic dysfunction. 5. There is mild mitral valve regurgitation. 6. There is trivial pericardial effusion. Left Ventricle Left ventricular chamber dimension is mildly enlarged. Left ventricular systolic function is moderately reduced, estimated at 35-40%. preserved wall motion in apical segments and the rest of the segments are hypokinetic. There is no increased left ventricular wall thickness. The left ventricular diastolic function is grade II diastolic dysfunction. Right Ventricle Right ventricular chamber dimension is normal. Right ventricular systolic function is normal. Left Atria Left atrial chamber dimension is normal. Right Atria Right atrial chamber dimension is normal. Atrial Septum Intact interatrial septum visualized by color flow imaging. Aortic Valve The aortic valve is trileaflet. There is no aortic valve sclerosis. There is no aortic valve stenosis. There is no aortic valve regurgitation. Pulmonic Valve The pulmonic valve is normal. There is no pulmonic valve stenosis. There is no pulmonic regurgitation. Mitral Valve The mitral valve has normal leaflets. There is no mitral valve stenosis. There is mild mitral valve regurgitation. Tricuspid Valve The tricuspid valve leaflets are normal. There is no significant tricuspid valve stenosis. There is no tricuspid valve regurgitation. Pericardium/Pleural The pericardium appears normal. There is trivial pericardial effusion. Inferior Vena Cava Not well visualized inferior vena cava. Aorta The aortic root size at the sinus of Valsalva is normal. The prox ascending aorta size is normal. Left Ventricular Outflow Tract Name Value Normal LVOT 2D LVOT Diameter 2.4 cm LVOT Doppler LVOT Peak Gradient 3 mmHg LVOT Mean Gradient 2 mmHg LVOT VTI 13 cm LVOT VTI/AV VTI Ratio 0.7 LVOT Stroke Volume 63 ml Mitral Valve
[2021-02-17 08:03] LABS: Glucose Point of Care 194 mg/dl (65-105)
[2021-02-17] MEDS: metFORMIN HCL 500 MG TABLET PO ×2 (09:16→18:07)
[2021-02-17] MEDS: METOPROLOL TARTRATE 25 MG TABLET PO ×2 (09:17→21:41)
[2021-02-17] MEDS: GLIMEPIRIDE 2 MG TABLET PO ×2 (09:17→18:07)
[2021-02-17] MEDS: ROSUVASTATIN 10 MG TABLET PO (09:18)
[2021-02-17] MEDS: ENOXAPARIN 120 MG/0.8 ML SYRINGE 105 MG SUB-Q ×2 (09:18→21:42)
[2021-02-17] MEDS: amLODIPine BESYLATE 5 MG TABLET PO (09:18)
[2021-02-17] MEDS: ASPIRIN 81 MG CHEWABLE TABLET PO (09:18)
[2021-02-17 11:55] LABS: Glucose Point of Care 248 mg/dl (65-105)
[2021-02-17] MEDS: INSULIN ASPART (*BKC) 100 UNITS/ML SUB-Q ×2 (12:10→18:07)
[2021-02-17] MEDS: VALSARTAN 160 MG TABLET PO (12:11)
--- NOTE | 2021-02-17 14:23 | PCNSR ---
On 02/17/21, the student, [Rebecca Ross], provided care and completed [facility] documentation on this patient. I have reviewed the student's documentation and agree with the findings.
--- NOTE | 2021-02-17 15:35 | PM.PNCARD ---
Progress Note: A&P Assessment and Plan (1) Non-STEMI (non-ST elevated myocardial infarction): Code(s): I21.4 - Non-ST elevation (NSTEMI) myocardial infarction Status: Acute Assessment and Plan: Young man who suffered a NSTEMI yesterday. Coronary angiogram findings: 1. Right coronary dominant circulation with coronary artery disease appears to be limited to high-grade 95% stenosis at the ostium of a large septal branch of the left anterior descending. No other coronary lesions are identified 2. inferior wall hypokinesia which is difficult to explain based on these angiograms overall slightly reduced ejection fraction 3. significant hypertension and elevated LVEDP 4. Angio-Seal to right femoral artery No chest pain. On ASA, statin. (2) Hypertension, uncontrolled: Code(s): I10 - Essential (primary) hypertension Status: Acute Assessment and Plan: Blood pressure remains well above goal today. Increase amlodipine to 10 mg daily. Continue valsartan and metoprolol at current doses. (3) DM2 (diabetes mellitus, type 2): Code(s): E11.9 - Type 2 diabetes mellitus without complications Status: Chronic Assessment and Plan: New onset diabetes. Evaluation treatment per hospitalist. (4) Non-compliance: Code(s): Z91.19 - Patient's noncompliance with other medical treatment and regimen Status: Acute Assessment and Plan: Noncompliance secondary to lack of insurance. Patient states he is now insured and also he will comply with medical therapy. Subjective Date/time seen: 02/17/21 15:35 Interval history: Cardiology follow up for chest pain Date of service 02/17/2021: Patient continues to feel well today. He is taking a nap as I enter the room. He denies any chest pain, shortness of breath. The primary reason that he remains in the hospital is low-grade fever and hyper glycemia. We are also still working to get his blood pressure under control. Review of Systems Constitutional: Constitutional: Denies headache(s) and Reports lethargy Eyes: Eyes: Reports no additional eye complaints ENT: Denies headache(s) and Denies epistaxis Cardiovascular: Cardiovascular: Reports chest pain, Denies pedal edema, Denies leg edema, Denies lightheadedness and Reports dyspnea on exertion Respiratory: Respiratory: Denies cough and Reports dyspnea on exertion Gastrointestinal: Gastrointestinal: Denies abdominal pain, Denies hematochezia and Denies hematemesis Genitourinary: Genitourinary: Denies hematuria Musculoskeletal: Musculoskeletal: Reports no additional musculoskeletal complaints Integumentary/Breasts: Skin/Breast: Denies rash Neurologic: Denies headache(s) Psychiatric: Psychiatric: Denies depression Exam Const: General: comfortable and no acute distress HENMT: General nose exam: no epistaxis Mouth: Yes moist mucous membranes Eyes: EOM: EOMs intact bilaterally Neck: Neck: supple and no JVD Thyroid: thyroid normal Carotids: no bruits Lymphatic: lymphadenopathy not noted Resp: Effort & Inspection: normal respiratory effort Auscultation: clear to auscultation bilaterally Cardio: Rate: regular rate Rhythm: regular rhythm Heart sounds: no murmurs GI: Inspection: non-distended Skin: General skin exam: normal color and no rashes or lesions noted Neuro: Cognition (Neuro): normal cognition Speech: normal speech Motor exam (neuro): Normal motor muscle tone present throughout Extrem: General: no edema and no pedal edema Psych: Mental Status: mental status grossly normal Affect: normal affect Objective Data Vital Signs Vital Signs: Vital Signs - 24 hr 02/16/21 16:00 02/16/21 17:59 02/16/21 18:00 Temperature 37.4 C 37.8 C H Pulse Rate 103 H 105 H Respiratory Rate 14 Blood Pressure 202/
[2021-02-17 16:55] LABS: Glucose Point of Care 242 mg/dl (65-105)
--- NOTE | 2021-02-17 18:37 | PM.IMPN ---
Progress Note: A&P Assessment and Plan (1) Non-STEMI (non-ST elevated myocardial infarction): Code(s): I21.4 - Non-ST elevation (NSTEMI) myocardial infarction Status: Acute Assessment and Plan: Continue to trend his troponins. The patient did have chest pain with this that started yesterday. I did order an echo for tomorrow. I started him on some subcu Lovenox. I started him on metoprolol as well. Cardiology has been consulted. Will continue to trend his troponins. He has p.r.n. nitro as well. 02/17/21 18:37 02/15 patient is a 36-year-old male with history of hypertension and diabetes uncontrolled with hemoglobin A1c of 13 patient presented emergency department with complaint chest pain described as a tightening, patient stated he has not taken his blood pressure and diabetic medicine for several months, upon arrival patient blood sugar was in 571 and in DKA insulin drip was started, patient blood sugars are trending down his off the drip and on long-acting insulin as well as short-acting insulin, patient tropes are elevated to 5.27 patient was seen by Cardiology to taken to the cardiac outside laborer had a cardiac catheterization showed significant stenosis unable to amend with stent, patient remains clinically stable is seen by tamale machine feeder and Cardiology and appreciate. 02/16 patient had developed fever and cough there was a concern the patient may be positive for COVID-19 was tested an isolated, patient COVID-19 is negative however patient continued to have fever, will do the blood, urine culture, patient chest x-ray was negative yesterday, will start the patient on Zosyn and further recommendation to follow, patient blood pressure remaining high seen by cardiology add Norvasc 5 mg q.day, lisinopril 5 mg q.day and continue metoprolol 25 mg b.i.d will continue to monitor, patient with diabetes uncontrolled, added metformin 500 mg b.i.d.and glimepiride to mg b.i.d. will monitor with sliding scale, patient be seen by apprentice cosmetologist and further recommendation to follow. 02/17 patient again had a fever will continue Zosyn, blood and urine culture still no growth patient remains clinically stable, he seen by Cardiology his blood patient remains high is metoprolol was increased to 50 mg b.i.d., for his diabetes we had started the patient on metformin and glimepride he will be seen by apprentice cosmetologist and further recommendation to follow, will continue present management and reassess tomorrow. (2) DM2 (diabetes mellitus, type 2): Code(s): E11.9 - Type 2 diabetes mellitus without complications Status: Chronic Assessment and Plan: Were going to take him off the insulin drip now his blood sugars are in the 200s. Will give him some Lantus according to his weight which is 0.2 milligrams/kilogram. And give him moderate sliding scale insulin. matcher operator would greatly be appreciated. The patient will need a monitor to go home with. Check his A1c is well. (3) Hypertension: Code(s): I10 - Essential (primary) hypertension Status: Chronic Assessment and Plan: The patient has been off of his losartan and his hydrochlorothiazide. Since his troponins are elevated I did start him on metoprolol. (4) Non-compliance: Code(s): Z91.19 - Patient's noncompliance with other medical treatment and regimen Status: Acute Assessment and Plan: The patient stated that he was not able to afford a doctor visit in the past. Subjective Date/time seen: 02/17/21 18:37 02/15 patient is a 36-year-old male with history of hypertension and diabetes uncontrolled with hemoglobin A1c of 13 patient presented emergency department with complaint chest pain described as a tightening, patient stated he has not taken his blood pressure and diabetic medicine for several months, upon arrival patient blood sugar was in 571 and in DKA insulin drip was started, patient blood sugars are trending down his off th
[2021-02-17] MEDS: ACETAMINOPHEN 325 MG TABLET 650 MG PO (21:41)
[2021-02-17] MEDS: INSULIN GLARGINE (*BKC) 100 UNITS/ML 20 UNITS SUB-Q (21:46)
[2021-02-17 22:09] LABS: Glucose Point of Care 198 mg/dl (65-105)
[2021-02-18] VITALS (8 sets, daily range): BP systolic 109–154; BP diastolic 72–99; PULSE 84–107; RESP 16–18; TEMP 36.2–37.1; O2SAT 98–99
[2021-02-18 05:08] LABS: Hematocrit 50.2 % (42.0-52.0); Hemoglobin 16.5 g/dL (14.0-18.0); Mean Corpuscular HGB Conc 32.9 g/dl (32-36); Mean Corpuscular Hemoglobin 27.8 pg (26-34); Mean Corpuscular Volume 84.5 fl (80-100); Mean Platelet Volume 11.1 fl (7.4-10.4); Platelet Count Result 239 k/mm3 (150-375); Red Blood Count 5.94 M/mm3 (4.6-6.20); Red Cell Distribution Width 12.9 % (11.5-14.5)
[2021-02-18 05:26] LABS: Anion Gap 8 mmol/L (8-16); Blood Urea Nitrogen 19 mg/dL (9-20); Calcium 9.2 mg/dL (8.4-10.2); Carbon Dioxide 24 mmol/L (22-30); Chloride 105 mmol/L (98-107); Estimated CRCL calculation 97 ml/min; Estimated Glomerular Filt Rate > 60; Glucose 131 mg/dL (75-110); Potassium 3.8 mmol/L (3.4-5.0); Sodium 137 mmol/L (137-145)
[2021-02-18] MEDS: ACETAMINOPHEN 325 MG TABLET 650 MG PO (05:47)
[2021-02-18 07:54] LABS: Glucose Point of Care 206 mg/dl (65-105)
[2021-02-18] MEDS: INSULIN ASPART (*BKC) 100 UNITS/ML SUB-Q ×2 (08:27→11:41)
[2021-02-18] MEDS: ENOXAPARIN 120 MG/0.8 ML SYRINGE 105 MG SUB-Q (08:30)
[2021-02-18] MEDS: GLIMEPIRIDE 2 MG TABLET PO (08:31)
[2021-02-18] MEDS: ASPIRIN 81 MG CHEWABLE TABLET PO (08:31)
[2021-02-18] MEDS: amLODIPine BESYLATE 5 MG TABLET 10 MG PO (08:32)
[2021-02-18] MEDS: VALSARTAN 160 MG TABLET PO (08:32)
[2021-02-18] MEDS: metFORMIN HCL 500 MG TABLET PO (08:32)
[2021-02-18] MEDS: METOPROLOL TARTRATE 25 MG TABLET PO (08:33)
[2021-02-18] MEDS: ROSUVASTATIN 10 MG TABLET PO (08:33)
--- NOTE | 2021-02-18 10:28 | PM.PNCARD ---
Progress Note: A&P Assessment and Plan (1) Non-STEMI (non-ST elevated myocardial infarction): Code(s): I21.4 - Non-ST elevation (NSTEMI) myocardial infarction Status: Acute Assessment and Plan: Young man who suffered a NSTEMI yesterday. Coronary angiogram findings: 1. Right coronary dominant circulation with coronary artery disease appears to be limited to high-grade 95% stenosis at the ostium of a large septal branch of the left anterior descending. No other coronary lesions are identified 2. inferior wall hypokinesia which is difficult to explain based on these angiograms overall slightly reduced ejection fraction 3. significant hypertension and elevated LVEDP Medical therapy No chest pain. On ASA, statin. (2) Hypertension, uncontrolled: Code(s): I10 - Essential (primary) hypertension Status: Acute Assessment and Plan: Blood pressure remains well above goal today. Increase metoprolol to 50 mg p.o. b.i.d.. Probably okay to go home later today assault blood pressure remains reasonably controlled. Follow up as an outpatient Dr. Jay or Didi Hector within 2 weeks (3) DM2 (diabetes mellitus, type 2): Code(s): E11.9 - Type 2 diabetes mellitus without complications Status: Chronic Assessment and Plan: New onset diabetes. Evaluation treatment per hospitalist. (4) Non-compliance: Code(s): Z91.19 - Patient's noncompliance with other medical treatment and regimen Status: Acute Assessment and Plan: Noncompliance secondary to lack of insurance. Patient states he is now insured and also he will comply with medical therapy. Subjective Date/time seen: 02/18/21 10:28 Interval history: 36-year-old admitted for chest pain Date of service 02/18/2021: he feels okay. Wants to go home. No chest pain, shortness of breath, groin pain. blood pressure is better but still elevated Review of Systems Constitutional: Constitutional: Denies headache(s) and Reports lethargy Eyes: Eyes: Reports no additional eye complaints ENT: Denies headache(s) and Denies epistaxis Cardiovascular: Cardiovascular: Reports chest pain, Denies pedal edema, Denies leg edema, Denies lightheadedness and Reports dyspnea on exertion Respiratory: Respiratory: Denies cough and Reports dyspnea on exertion Gastrointestinal: Gastrointestinal: Denies abdominal pain, Denies hematochezia and Denies hematemesis Genitourinary: Genitourinary: Denies hematuria Musculoskeletal: Musculoskeletal: Reports no additional musculoskeletal complaints Integumentary/Breasts: Skin/Breast: Denies rash Neurologic: Denies headache(s) Psychiatric: Psychiatric: Denies depression Endocrine: Endocrine: Denies fatigue Hematologic/Lymphatic: Hematologic/Lymphatic: Denies easy bleeding Allergic/Immunologic: Allergic/Immunologic: Denies lip swelling Exam Narrative: Exam Narrative: Overweight young male in bed, no distress, pleasant and cooperative Const: General: comfortable and no acute distress HENMT: General nose exam: no epistaxis Mouth: Yes moist mucous membranes Eyes: EOM: EOMs intact bilaterally Neck: Neck: supple and no JVD Thyroid: thyroid normal Carotids: no bruits Lymphatic: lymphadenopathy not noted Resp: Effort & Inspection: normal respiratory effort Auscultation: clear to auscultation bilaterally Cardio: Rate: regular rate Rhythm: regular rhythm Heart sounds: no murmurs Other: good distal pulses. GI: Inspection: non-distended Skin: General skin exam: normal color and no rashes or lesions noted Neuro: Cognition (Neuro): normal cognition Speech: normal speech Motor exam (neuro): Normal motor muscle tone present throughout Extrem: General: no edema and no pedal edema Psych: Mental Status: mental status grossly normal Affect: normal a
[2021-02-18] MEDS: CLOPIDOGREL BISULFATE 75 MG TABLET PO (11:45)
--- NOTE | 2021-02-18 11:54 | PM.DS ---
DS: Admitting Diagnosis Admitting Diagnosis Admitting Diagnosis: chest pain DS: Discharge Diagnosis Discharge Diagnosis (1) Non-STEMI (non-ST elevated myocardial infarction): Code(s): I21.4 - Non-ST elevation (NSTEMI) myocardial infarction Status: Acute Assessment and Plan: Continue to trend his troponins. The patient did have chest pain with this that started yesterday. I did order an echo for tomorrow. I started him on some subcu Lovenox. I started him on metoprolol as well. Cardiology has been consulted. Will continue to trend his troponins. He has p.r.n. nitro as well. 02/17/21 18:37 02/15 patient is a 36-year-old male with history of hypertension and diabetes uncontrolled with hemoglobin A1c of 13 patient presented emergency department with complaint chest pain described as a tightening, patient stated he has not taken his blood pressure and diabetic medicine for several months, upon arrival patient blood sugar was in 571 and in DKA insulin drip was started, patient blood sugars are trending down his off the drip and on long-acting insulin as well as short-acting insulin, patient tropes are elevated to 5.27 patient was seen by Cardiology to taken to the cardiac laboratory technician had a cardiac catheterization showed significant stenosis unable to amend with stent, patient remains clinically stable is seen by skein winding operator and Cardiology and appreciate. 02/16 patient had developed fever and cough there was a concern the patient may be positive for COVID-19 was tested an isolated, patient COVID-19 is negative however patient continued to have fever, will do the blood, urine culture, patient chest x-ray was negative yesterday, will start the patient on Zosyn and further recommendation to follow, patient blood pressure remaining high seen by cardiology add Norvasc 5 mg q.day, lisinopril 5 mg q.day and continue metoprolol 25 mg b.i.d will continue to monitor, patient with diabetes uncontrolled, added metformin 500 mg b.i.d.and glimepiride to mg b.i.d. will monitor with sliding scale, patient be seen by tobacco prevention health educator and further recommendation to follow. 02/17 patient again had a fever will continue Zosyn, blood and urine culture still no growth patient remains clinically stable, he seen by Cardiology his blood patient remains high is metoprolol was increased to 50 mg b.i.d., for his diabetes we had started the patient on metformin and glimepride he will be seen by tobacco prevention health educator and further recommendation to follow, will continue present management and reassess tomorrow. (2) DM2 (diabetes mellitus, type 2): Code(s): E11.9 - Type 2 diabetes mellitus without complications Status: Chronic Assessment and Plan: Were going to take him off the insulin drip now his blood sugars are in the 200s. Will give him some Lantus according to his weight which is 0.2 milligrams/kilogram. And give him moderate sliding scale insulin. tobacco prevention health educator would greatly be appreciated. The patient will need a monitor to go home with. Check his A1c is well. (3) Hypertension: Code(s): I10 - Essential (primary) hypertension Status: Chronic Assessment and Plan: The patient has been off of his losartan and his hydrochlorothiazide. Since his troponins are elevated I did start him on metoprolol. (4) Non-compliance: Code(s): Z91.19 - Patient's noncompliance with other medical treatment and regimen Status: Acute Assessment and Plan: The patient stated that he was not able to afford a doctor visit in the past. DS: Summary Hospital Course Reason for hospitalization: This is a 36 Year old male patient who has a past medical history of having hypertension. The patient states that he was having some chest pain about 3 years ago and he was diagnosed with hypertension. The patient took the medication up until a few months ago when he ran out during COVID. He could not afford to go to the doctor
[2021-02-18 12:23] LABS: Glucose Point of Care 203 mg/dl (65-105)
== END 2021-02-18 13:05 | disposition home or self-care (01) | DRG 282 ==
LOC: ANHED 17:55 → ANHICU 19:08 → ANHIMU 02-16 15:17 → ANHICU 02-21 10:44 → ANHIMU 02-21 10:44
PROVIDERS: Emergency Medicine; Internal Medicine; Nurse Practitioner; Specialist; Admitting Provider Internal Medicine; Emergency Provider Emergency Medicine; PCP Physician Assistant; Visit Provider Family Medicine
PROC: 4A023N7 Measurement of Cardiac Sampling and Pressure, Left Heart, Percutaneous Approach (ICD-10-PCS; CPT 93452; principal; 2021-02-15 11:30)
PROC: 4A023N7 Measurement of Cardiac Sampling and Pressure, Left Heart, Percutaneous Approach (ICD-10-PCS; 2021-02-15 11:30)
DX: I21.4 Non-ST elevation (NSTEMI) myocardial infarction (principal); Z20.822 Contact with and (suspected) exposure to COVID-19; E11.65 Type 2 diabetes mellitus with hyperglycemia; I16.0 Hypertensive urgency; I25.10 Atherosclerotic heart disease of native coronary artery without angina pectoris; E66.9 Obesity, unspecified; Z91.14 Patient's other noncompliance with medication regimen; Z68.33 Body mass index [BMI] 33.0-33.9, adult
CPT/HCPCS: 36415; 36600; 71045; 71046; 80048; 80053; 80061; 81001; 82010; 82805; 82948; 83036; 83605; 83735; 84100; 84443; 84484; 85025; 85027; 85610; 85730; 87040; 87086; 93005; 93306; 93458; 94640; 96361; 96365; 96366; 96372; 96375; 96376; 99291; A9270; C1760; C1887; C1894; C9803; G0269; G0378; J1644; J1650; J1815; J2250; J2405; J2543; J3010; J7030; J7040; U0003; U0005